=== PATIENT | male | born 1960 | race Caucasian/White ===

== ENCOUNTER 2016-05-14 16:52 | Emergency (ER) | payer OTHER ==
--- NOTE | 2016-05-14 17:03 | CPEKG ---
Heart Rate: 64 RR Interval: 938 P-R Interval: 220 QRSD Interval: 98 QT Interval: 408 QTC Interval: 421 P Alderson: 47 QRS Alderson: 90 T Wave Alderson: 29 EKG Severity - ABNORMAL ECG - EKG Impression: SINUS RHYTHM EKG Impression: FIRST DEGREE AV BLOCK EKG Impression: BORDERLINE RIGHT AXIS DEVIATION Electronically Signed By: Ry King 14-May-2016 17:23:33
[2016-05-14 17:06] VITALS: RESP 16; TEMP 97.7
--- NOTE | 2016-05-14 17:10 | EDPHY ---
H & P Time Seen by Provider: 05/14/16 17:02 HPI/ROS: Chief complaint. Chest pain HPI. Patient is a 55-year-old male has had left anterior chest discomfort for about 2 weeks. Slight headache although he says is fairly normal as he has frequent headaches. The discomfort in his chest is left anterior maybe radiating to his left jaw. It is described as sharp and worse with deep breathing. He is recently return from a ski trip and he felt like he had no symptoms there. Not ill. No leg symptoms no previous similar symptoms. No shortness of breath or cough ROS Constitutional. no fever/chills, no weakness Eyes. no problems with vision ENT. no sore throat, no nasal drainage Cardiovascular. Left anterior chest pain Respiratory. no shortness of breath, no cough Abdominal. no abdominal pain, no nausea/vomiting, no diarrhea . no problems urinating MS. no calf pain/swelling, no neck/back pain, no joint pain Skin. no rash Lymph. no swollen glands Neuro. Headache Past Medical/Surgical History: Denies past medical history Family history patient is adopted though he believes his parents lived into their 80s Social History: , nonsmoker, no alcohol Smoking Status: Never smoked Physical Exam: General Appearance: Alert well-developed male mild distress vital signs are stable Eyes: Pupils equal and round no pallor or injection. ENT, Mouth: Mucous membranes are moist. Respiratory: There are no retractions, lungs are clear to auscultation. Cardiovascular: Regular rate and rhythm. Gastrointestinal: Abdomen is soft and nontender, no masses, bowel sounds normal. Neurological: Awake and alert, sensory and motor exams grossly normal. Skin: Warm and dry, no rashes. Musculoskeletal: Neck is supple nontender. Extremities symmetrical, full range of motion. Psychiatric: Patient is oriented X 3, there is no agitation. Constitutional: Initial Vital Signs Temperature (C) 36.5 C 05/14/16 17:04 Heart Rate 65 05/14/16 17:04 Respiratory Rate 16 05/14/16 17:04 Blood Pressure 161/82 H 05/14/16 17:04 O2 Sat (%) 99 05/14/16 17:04 O2 Delivery Mode Room Air Allergies/Adverse Reactions: No Known Allergies Allergy (Unverified 05/14/16 17:06) Home Medications: Medication Instructions Recorded NK [No Known Home Meds] 05/14/16 Medical Decision Making - Diagnostics Imaging: Chest x-ray interpreted by me is normal Procedures: IV normal saline, monitor ED Course/Re-evaluation: Re-evaluation at 6:40 p.m. - Data Points Laboratory Results: Laboratory Results 05/14/16 17:12 05/14/16 17:12 05/14/16 17:12 WBC 6.89 10^3/uL (3.80-9.50) RBC 5.00 10^6/uL (4.40-6.38) Hgb 15.4 g/dL (13.7-17.5) Hct 44.3 % (40.0-51.0) MCV 88.6 fL (81.5-99.8) MCH 30.8 pg (27.9-34.1) MCHC 34.8 g/dL (32.4-36.7) RDW 12.3 % (11.5-15.2) Plt Count 208 10^3/uL (150-400) MPV 9.5 fL (8.7-11.7) Neut % (Auto) 53.8 % (39.3-74.2) Lymph % (Auto) 35.4 % (15.0-45.0) [place] % (Auto) 6.8 % (4.5-13.0) Eos % (Auto) 3.2 % (0.6-7.6) Baso % (Auto) 0.4 % (0.3-1.7) Nucleat RBC Rel Count 0.0 % (0.0-0.2) Absolute Neuts (auto) 3.70 10^3/uL (1.70-6.50) Absolute Lymphs (auto) 2.44 10^3/uL (1.00-3.00) Absolute Monos (auto) 0.47 10^3/uL (0.30-0.80) Absolute Eos (auto) 0.22 10^3/uL (0.03-0.40) Absolute Basos (auto) 0.03 10^3/uL (0.02-0.10) Absolute Nucleated RBC 0.00 10^3/uL (0-0.01) Immature Gran % 0.4 % (0.0-1.1) Immature Gran # 0.03 10^3/uL (0.00-0.10) D-Dimer < 0.27 ug/mLFEU (0.00-0.50) Sodium 143 mEq/L (134-144) Potassium 4.5 mEq/L (3.5-5.2) Chloride 106 mEq/L (97-110) Carbon Dioxide 25 mEq/l (22-31) Anion Gap 12 mEq/L (8-16) BUN 19 mg/dL (7-23) Creatinine 0.9 mg/dL (0.7-1.3) Estimated GFR > 60 Glucose 83 mg/dL (70-100) Calcium 9.3 mg/dL (8.5-10.4) Troponin I 0.016 ng/mL (0-0.034) NT-Pro-B Natriuret Pep 53 pg/mL (0-125)
[2016-05-14 17:42] LABS: % IMMATURE GRANULYOCYTES 0.4 % (0.0-1.1); ABSOLUTE IMMATURE GRANULOCYTES 0.03 10^3/uL (0.00-0.10); ADD DIFF? NO; ADD MORPH? NO; ADD SCAN? NO; ATYPICAL LYMPHOCYTE FLAG 10 (0-99); FRAGMENT RBC FLAG 0 (0-99); HEMATOCRIT 44.3 % (40.0-51.0); HEMOGLOBIN 15.4 g/dL (13.7-17.5); LEFT SHIFT FLG 0 (0-99); LIPEMIA HEMOLYSIS FLAG 90 (0-99); MEAN CELL HEMOGLOBIN 30.8 pg (27.9-34.1); MEAN CELL HEMOGLOBIN CONCENTR. 34.8 g/dL (32.4-36.7); MEAN CELL VOLUME 88.6 fL (81.5-99.8); MEAN PLATELET VOLUME 9.5 fL (8.7-11.7); PLATELET CLUMPS FLAG 0 (0-99); PLATELET COUNT 208 10^3/uL (150-400); RED CELL DISTRIBUTION WIDTH 12.3 % (11.5-15.2)
--- NOTE | 2016-05-14 17:49 | DX ---
Portable Chest, 2 views, 17:42 History: Chest pain Comparison: None Findings: Lungs clear. Heart size and pulmonary vascularity are normal. No pleural effusion, mass or adenopathy. No pneumothorax. EKG leads overlie the chest. Impression: Negative.
[2016-05-14 17:57] LABS: ANION GAP 12 mEq/L (8-16); CALCIUM 9.3 mg/dL (8.5-10.4); CARBON DIOXIDE 25 mEq/l (22-31); CHLORIDE 106 mEq/L (97-110); CREATININE 0.9 mg/dL (0.7-1.3); GLOMERULAR FILTRATION RATE > 60; GLUCOSE 83 mg/dL (70-100); POTASSIUM 4.5 mEq/L (3.5-5.2); SODIUM 143 mEq/L (134-144)
[2016-05-14 18:07] LABS: TROPONIN I 0.016 ng/mL (0-0.034)
[2016-05-14 19:09] VITALS: BP 141/89; PULSE 59; O2SAT 97
== END 2016-05-14 19:09 | disposition home or self-care (01) ==
DX: R07.89 Other chest pain (principal)

== ENCOUNTER → 2016-07-25 | Outpatient (CLI) | payer OTHER | LOC: FIMAGING 10:23 | PROVIDERS: ATTEND Internal Medicine Cardiovascular Disease | DX: Z13.6 Encounter for screening for cardiovascular disorders (principal); J84.10 Pulmonary fibrosis, unspecified ==